=== PATIENT | female | born 1965 ===

== ENCOUNTER 2017-12-26 15:56 | Emergency (ER) | payer OTHER ==
[2017-12-26 16:18] VITALS: BMI 29.9
[2017-12-26 16:23] VITALS: RESP 18
[2017-12-26 16:59] LABS: BASO # 0.1 K/uL (0.0-0.2); BASO % 0.8 % (0.0-2.0); EOS # 4.4 K/uL (0.0-0.7); EOS % 38.5 % (0.0-4.0); HEMOGLOBIN 12.3 g/dL (11.0-16.0); LYMPH # 3.3 K/uL (1.0-4.3); LYMPH % 28.9 % (20.0-40.0); MEAN CELL VOLUME 79.8 fL (81.0-99.0); MEAN CORPUSCULAR HEMOGLOBIN 26.3 pg (27.0-31.0); MEAN PLATELET VOLUME 8.1 fL (7.2-11.7); MONO # 0.5 K/uL (0.0-0.8); MONO % 4.5 % (0.0-10.0); NEUT # 3.1 K/uL (1.8-7.0); NEUT % 27.3 % (50.0-75.0); PLATELET COUNT 238 K/uL (130-400); RBC 4.67 Mil/uL (3.80-5.20); RED CELL DISTRIBUTION WIDTH 14.8 % (11.5-14.5); WHITE BLOOD COUNT 11.4 K/uL (4.8-10.8)
--- NOTE | 2017-12-26 17:16 | RAD ---
PROCEDURE: CHEST RADIOGRAPH, 1 VIEW HISTORY: Chest pain COMPARISON: None available. FINDINGS: LUNGS: Clear. PLEURA: No pneumothorax or pleural fluid seen. CARDIOVASCULAR: Normal. OSSEOUS STRUCTURES: No significant abnormalities. VISUALIZED UPPER ABDOMEN: Normal. OTHER FINDINGS: None. IMPRESSION: No active disease.
[2017-12-26 17:40] LABS: ALB/GLOB RATIO 1.1 (1.0-2.1); ALBUMIN 4.3 g/dL (3.5-5.0); ALT/SGPT 45 U/L (9-52); AST/SGOT 36 U/L (14-36); BLOOD UREA NITROGEN 8 mg/dL (7-17); CALCIUM 9.4 mg/dl (8.6-10.4); GFR AFRICAN-AMERICAN > 60; GFR NON-AFRICAN AMERICAN > 60; HDL CHOLESTEROL 30 mg/dL (30-70)
[2017-12-26 17:42] LABS: EOSINOPHIL 32 % (0-4); LYMPHOCYTE 29 % (20-40); MONOCYTE 2 % (0-10); NEUTROPHIL 37 % (50-75); TOTAL CELLS COUNTED 100
[2017-12-26 17:43] LABS: PLATELET ESTIMATE NORMAL (NORMAL)
[2017-12-26 17:52] LABS: B-TYPE NATRIURETIC PEPTIDE 13.9 pg/mL (0-900); LDL CHOLESTEROL 119 mg/dL (0-129)
--- NOTE | 2017-12-26 17:53 | C.PDOC ---
History Of Present Illness 51 y/o female with history of DM, HTN, High Cholesterol presents to ED with c/o chest pain when coughing for 2 weeks. Patient describes pain as pressure like and cough is productive with yellow phlegm. Patient has tried dayquil and nyquil with no relief, denies fever, sob, nausea, vomiting, leg swelling or any other complaints at this time. Time Seen by Provider: 12/26/17 16:13 Chief Complaint (Nursing): Chest Pain History Per: Patient History/Exam Limitations: no limitations Onset/Duration Of Symptoms: Days Current Symptoms Are (Timing): Still Present Past Medical History Reviewed: Historical Data, Nursing Documentation, Vital Signs Vital Signs: Last Vital Signs Temp 98.7 F 12/26/17 16:17 Pulse 92 H 12/26/17 18:09 Resp 18 12/26/17 18:09 BP 121/80 12/26/17 18:09 Pulse Ox 98 12/26/17 18:30 - Medical History PMH: Diabetes, HTN, Hypercholesterolemia, Hypothyroidism Surgical History: No Surg Hx Family History: States: No Known Family Hx - Social History Hx Alcohol Use: No Hx Substance Use: No - Immunization History Hx Influenza Vaccination: No Hx Pneumococcal Vaccination: No Review Of Systems Cardiovascular: Positive for: Chest Pain Respiratory: Positive for: Cough Physical Exam - Physical Exam Appears: Non-toxic, No Acute Distress Skin: Warm, Dry, No Rash Head: Atraumatic, Normacephalic Eye(s): bilateral: Normal Inspection Oral Mucosa: Moist Neck: Normal ROM, Supple Cardiovascular: Rhythm Regular Respiratory: Normal Breath Sounds, No Rales, No Rhonchi, No Wheezing Gastrointestinal/Abdominal: Soft, No Tenderness, No Guarding, No Rebound Extremity: Normal ROM, Capillary Refill (<2 seconds) Neurological/Psych: Oriented x3, Normal Speech, Normal Cognition ED Course And Treatment - Laboratory Results Result Diagrams: 12/26/17 16:56 12/26/17 16:56 ECG: Interpreted By Me, Viewed By Me ECG Rhythm: Sinus Rhythm Rate From EC (BPM) O2 Sat by Pulse Oximetry: 98 (RA) Pulse Ox Interpretation: Normal Medical Decision Making Medical Decision Making: Assessment: Chest pain - non cardiac patient with cough and chest pain, (+) eosinophils - will treat for bronchitis advise patient to follow up with pmd within 2 days advised to return to ER if symptoms worsens or progress Disposition Counseled Patient/Family Regarding: Studies Performed, Diagnosis, Need For Followup, Rx Given - Disposition Referrals: Abdulkadir Hernandez MD [Resident] - Disposition: HOME/ ROUTINE Disposition Time: 18:32 Condition: STABLE Additional Instructions: follow up with your doctor within 2 days call to make an appointment take medications as prescribed return to ER if symptoms worsens or progress Prescriptions: Azithromycin [Zithromax] 250 mg PO DAILY #4 tab Hydrocodone/Chlorpheniramine [Tussionex] 5 ml PO QPM #80 ml Instructions: Acute Bronchitis Forms: Gen Discharge Inst Iranian, [employer] (Iranian) Print Language: COMORAN - Clinical Impression Clinical Impression: Bronchitis - Scribe Statement The provider has reviewed the documentation as recorded by the Michelleibnirmal De Souza All medical record entries made by the Michelleibnirmal were at my direction and personally dictated by me. I have reviewed the chart and agree that the record accurately reflects my personal performance of the history, physical exam, medical decision making, and the department course for this patient. I have also personally directed, reviewed, and agree with the discharge instructions and disposition.
[2017-12-26 18:11] VITALS: BP 121/80; PULSE 92
[2017-12-26 18:30] VITALS: O2SAT 98
[2017-12-26 18:49] VITALS: TEMP 98.1
--- NOTE | 2017-12-27 23:06 | CARD ---
APPROVED REPORT EKG Measurement Heart [id number] <Conclusion> Normal sinus rhythm Normal ECG
== END 2017-12-26 18:50 | disposition home or self-care (01) ==
LOC: C.ER 15:56
DX: J40 Bronchitis, not specified as acute or chronic (principal); E11.9 Type 2 diabetes mellitus without complications; I10 Essential (primary) hypertension; E78.00 Pure hypercholesterolemia, unspecified
CPT/HCPCS: 71045; 80053; 80061; 83880; 84484; 85025; 93005; 96374; 99285; J1885